=== PATIENT | female | born 1960 | race Hispanic/Latino ===

== ENCOUNTER 2017-01-30 05:44 | Emergency (ER) | payer BC, OTHER ==
[2017-01-30 05:45] VITALS: BMI 27.1
[2017-01-30 06:02] VITALS: RESP 18; TEMP 98.2
--- NOTE | 2017-01-30 06:19 | ED PDOC ---
Arrival/HPI - General Chief Complaint: Rib Injury Time Seen by Provider: 01/30/17 06:14 Historian: Patient - History of Present Illness Narrative History of Present Illness (Text): 01/30/17 06:18 Maritza Arcos is a 56 year old female who presents to the ED complaining of left lower rib/LUQ pain status post 6 days prior. Patient states at work she fell on her left side while walking on pavement. Patient states she has been experiencing anterior left lower rib pain and LUQ pain since then, which is worsened with movement of coughing. Patient denies any shortness of breath, nausea, vomiting, diarrhea, back pain, neck pain, loss of consciousness, head injury, or any other complaints. Time/Duration: < week (6 days) Symptom Onset: Gradual Symptom Course: Unchanged Activities at Onset: Light Context: Walking, Street, Tripped Past Medical History - Provider Review Nursing Documentation Reviewed: Yes - Past Medical History Past Medical History: No Previous - Musculoskeletal/Rheumatological Hx Falls: No - Psychiatric Hx Depression: No Hx Emotional Abuse: No Hx Physical Abuse: No Hx Substance Use: No - Surgical History Hx Appendectomy: Yes - Suicidal Assessment Feels Threatened In Home Enviroment: No Family/Social History - Physician Review Nursing Documentation Reviewed: Yes Family/Social History: Unknown Family HX Smoking Status: Never Smoked Hx Alcohol Use: No Hx Substance Use: No Hx Substance Use Treatment: No Allergies/Home Meds Allergies/Adverse Reactions: Allergies No Known Allergies Allergy (Verified 06/01/13 14:42) Review of Systems - Physician Review All systems were reviewed & negative as marked: Yes - Review of Systems Constitutional: Normal. absent: Fevers Eyes: Normal ENT: Normal Respiratory: Normal. absent: SOB, Cough Cardiovascular: Chest Pain (+left lower rib pain) Gastrointestinal: Abdominal Pain (+LUQ pain). absent: Diarrhea, Nausea, Vomiting Genitourinary Female: Normal. absent: Dysuria, Frequency, Hematuria Musculoskeletal: Normal. absent: Back Pain, Neck Pain Skin: Normal. absent: Rash Neurological: Normal. absent: Headache, Dizziness Endocrine: Normal Hemo/Lymphatic: Normal Psychiatric: Normal Physical Exam Vital Signs Reviewed: Yes Vital Signs Temp Pulse Resp BP Pulse Ox 01/30/17 05:57 98.2 F 64 18 143/78 99 Temperature: Afebrile Blood Pressure: Normal Pulse: Regular Respiratory Rate: Normal Appearance: Positive for: Well-Appearing, Non-Toxic Pain Distress: None Mental Status: Positive for: Alert and Oriented X 3 - Systems Exam Head: Present: Atraumatic, Normocephalic Pupils: Present: PERRL Extroacular Muscles: Present: EOMI Conjunctiva: Present: Normal Mouth: Present: Moist Mucous Membranes Respiratory/Chest: Present: Clear to Auscultation, Good Air Exchange, Tender to Palpation (Tenderness to anterior left lower rib cage). No: Respiratory Distress, Accessory Muscle Use Cardiovascular: Present: Regular Rate and Rhythm, Normal S1, S2. No: Murmurs Abdomen: Present: Tenderness (Tenderness to left upper abdomen), Normal Bowel Sounds. No: Distention, Peritoneal Signs Upper Extremity: Present: Normal Inspection. No: Cyanosis, Edema Lower Extremity: Present: Normal Inspection. No: Edema Neurological: Present: GCS=15, CN II-XII Intact, Speech Normal Skin: Present: Warm, Dry, Normal Color. No: Rashes Psychiatric: Present: Alert, Oriented x 3, Normal Insight, Normal Concentration Medical Decision Making ED Course and Treatment: 01/30/17 06:19 Impression: 56 year old female c/o left lower rib pain/LUQ pain s/p fall 6 days prior. Plan: -- CT Chest, Abdomen, Pelvis with IV contrast -- EKG -- CXR -- Labs, cardiac enzymes, lipase -- Reassess and disposition Progress Notes: - RAD Interpretation Radiology Orders: 01/30/17 06:20 CHEST PORTABLE [RAD] Stat 01/30/17 06:21 CHEST,ABD,PEL W/IV CONT ONLY [CT] Stat - Medication Orders Current Medication Orders: Morphine Sulfate (Morphine) 2 mg IVP STAT STA Stop: 01/30/17 06:32 - Transfer of Care Patient signed out to Dr:: Jennifer Pending Labs:: labs/CT Chest/abd/reassess/final disposition - Scribe Statement The provider has reviewed the documentation as recorded by the Scribe Rox Paredes All medical record entries made by the Scribe were at my direction and personally dictated by me. I have reviewed the chart and agree that the record accurately reflects my personal performance of the history, physical exam, medical decision making, and the department course for this patient. I have also personally directed, reviewed, and agree with the discharge instructions and disposition. Disposition/Present on Arrival - Present on Arrival Any Indicators Present on Arrival: No History of DVT/PE: No History of Uncontrolled Diabetes: No Urinary Catheter: No History of Decub. Ulcer: No History Surgical Site Infection Following: None - Disposition Have Diagnosis and Disposition been Completed?: No Diagnosis: Rib pain, Abdominal pain Disposition Time: 07:00 Condition: STABLE Discharge Instructions (ExitCare): Chest Pain (ED) Forms: [employer] (Tajik)
[2017-01-30] MEDS ORDERED: Morphine 2 mg/ml ISec IVP STA (06:31)
[2017-01-30] MEDS ORDERED: Sodium Chloride 0.9% 1,000 ML IV SCH (06:45)
[2017-01-30 07:06] LABS: HEMATOCRIT 41.6 % (36.0-48.0); INR 0.96 (0.93-1.08); MEAN CELL VOLUME 82.9 fl (80.0-105.0); MEAN CORPUSCULAR HEMOGLOBIN 27.5 pg (25.0-35.0); MEAN CORPUSCULAR HGB CONC 33.2 g/dl (31.0-37.0); MEAN PLATELET VOLUME 10.8 fl (7.0-11.0); PARTIAL THROMBOPLASTIN TIME 26.1 Seconds (23.7-30.8); RED CELL DISTRIBUTION WIDTH 14.1 % (11.5-14.5); WHITE BLOOD COUNT 5.8 10^3/ul (4.5-11.0)
[2017-01-30 07:10] LABS: ALB/GLOB RATIO 1.8 (1.1-1.8); ALKALINE PHOSPHATASE 70 U/L (38-126); ALT/SGPT 31 U/L (7-56); AST/SGOT 28 U/L (14-36); BILIRUBIN,TOTAL 0.3 mg/dL (0.2-1.3); BLOOD UREA NITROGEN 18 mg/dL (7-21); CALCIUM 9.2 mg/dL (8.4-10.5); CARBON DIOXIDE 27 mmol/L (21-33); CHLORIDE 108 mmol/L (98-107); GFR AFRICAN-AMERICAN > 60; GLUCOSE,RANDOM 100 mg/dL (70-110); LIPASE 35 U/L (23-300); POTASSIUM 4.3 mmol/L (3.6-5.0); SODIUM 142 mmol/L (132-148); TOTAL PROTEIN 6.4 g/dL (5.8-8.3)
[2017-01-30 07:22] LABS: TROPONIN I < 0.01 ng/mL
[2017-01-30] MEDS ORDERED: Iohexol 350 MG/100 ML VIAL ONE (07:24)
--- NOTE | 2017-01-30 08:08 | ED PDOC ---
Physical Exam - Physical Exam Narrative Physical Exam (Text): 01/30/17 08:06 Physical exam Patient appears age appropriate in no distress, speaking full sentences without difficulty Head atraumatic. No nasal bone deformity or tenderness, no facial or jaw pain/ swelling. No neck midline tenderness, thoracic and lumbar spine with no midline tenderness. Pt moving b/l upper and lower extremities without difficulty, 5/5 strength, with full active and passive ROM. Distal neurovasc fully intact. Abd soft/nt/ng, no hematomas, no peritoneal signs. Neg. pelvic rock. - Systems Exam Head: Present: Atraumatic, Normocephalic Pupils: Present: PERRL Extroacular Muscles: Present: EOMI Conjunctiva: Present: Normal Mouth: Present: Moist Mucous Membranes Neck: Present: Normal Range of Motion. No: MIDLINE TENDERNESS, Paraspinal Tenderness Respiratory/Chest: Present: Clear to Auscultation, Good Air Exchange. No: Respiratory Distress, Accessory Muscle Use, Tachypneic Cardiovascular: Present: Regular Rate and Rhythm, Normal S1, S2, Peripheal Pulses Present. No: Murmurs Abdomen: Present: Normal Bowel Sounds. No: Tenderness, Distention, Peritoneal Signs, Rebound, Guarding Back: Present: Normal Inspection. No: Midline Tenderness, Paraspinal Tenderness Upper Extremity: Present: Normal Inspection. No: Cyanosis, Edema Lower Extremity: Present: Normal Inspection. No: Edema Neurological: Present: GCS=15, Speech Normal, cranial nerves II through XII fully intact with no cerebellar abnormality, neurosensory fully intact. No focal neurological deficits. Skin: Present: Warm, Dry, Normal Color. No: Rashes Lymphatic: Present: OX3, NI, NC Psychiatric: Present: Alert, Oriented x 3, Normal Insight, Normal Concentration Vital Signs Reviewed: Yes Vital Signs Temp Pulse Resp BP Pulse Ox 01/30/17 09:37 51 L 18 127/67 100 01/30/17 07:45 50 L 18 132/58 L 99 01/30/17 05:57 98.2 F 64 18 143/78 99 Temperature: Afebrile Blood Pressure: Normal Pulse: Regular Respiratory Rate: Normal Appearance: Positive for: Well-Appearing Pain Distress: None Mental Status: Positive for: Alert and Oriented X 3 Medical Decision Making ED Course and Treatment: 01/30/17 08:06 pt in the ER after a mechanical fall sign out to f/u imaging and dispo pt has pain and ttp over her L. chest, where she fell onto. based on hx and pe, does not appear of cardiac origin pt still c/o reproducible pain Report Date : 01/30/2017 09:54:47 PROCEDURE: CT Chest, Abdomen and Pelvis with intravenous contrast Dictator : Guero Mann MD IMPRESSION: 1. No definite posttraumatic sequelae are appreciated throughout the chest abdomen or pelvis. No fracture appreciable. 2. There are several ill defined nodular foci identified at the bilateral lungs which are noncalcified a could reflect potential nodular infiltrates or even developing nodules. Largest measures 9 mm at the right upper lobe inferiorly. There are also a few calcified granulomata at the right lung. Please see discussion above. No significant mediastinal lymphadenopathy. 3. Multiple right renal simple cysts. 4. Prior cholecystectomy. 01/30/17 10:33 pt notes she has been developing cold symptoms read states possible infiltrates will be dc'd on abx informed of CT findings, and pt aware to f/u with her PMD for further w/u Pt states she understands to return to the ER right away for new or worsening symptoms or for inability to f/u with PMD or specialist as instructed. Patient states that she fully agrees with and understands discharge instructions. States that she agrees with the plan and disposition. Verbalized and repeated discharge instructions and plan. I have given the patient opportunity to ask any additional questions. - Lab Interpretations Lab Results: 01/30/17 06:49 01/30/17 06:49 Lab Results 01/30/17 06:49: WBC 5.8, RBC 5.02, Hgb 13.8, Hct 41.6, MCV 82.9, MCH 27.5, MCHC 33.2, RDW 14.1, Plt Count 207, MPV 10.8 01/30/17 06:49: Sodium 142, Potassium 4.3, Chloride 108 H, Carbon Dioxide 27, Anion Gap 11, BUN 18, Creatinine 0.6, Est GFR ( Amer) > 60, Est GFR (Non- Af Amer) > 60, Random Glucose 100, Calcium 9.2, Total Bilirubin 0.3, AST 28, ALT 31, Alkaline Phosphatase 70, Lactate Dehydrogenase 540, Total Creatine Kinase 92, Troponin I < 0.01, Total Protein 6.4, Albumin 4.1, Globulin 2.3, Albumin/Globulin Ratio 1.8, Lipase 35 01/30/17 06:49: PT 10.4, INR 0.96, APTT 26.1 - RAD Interpretation Radiology Orders: 01/30/17 06:20 CHEST PORTABLE [RAD] Stat 01/30/17 06:21 CHEST,ABD,PEL W/IV CONT ONLY [CT] Stat - Medication Orders Current Medication Orders: Sodium Chloride (Sodium Chloride 0.9%) 1,000 mls @ 100 mls/hr IV .Q10H SHANICE Last Admin: 01/30/17 06:52 Dose: 100 mls/hr eMAR Start Stop Document 01/30/17 06:52 EMILY (Rec: 01/30/17 06:52 [facility]ILY [id number]) Intravenous Solution Start Date 01/30/17 Start Time 06:52 Discontinued Medications Iohexol (Omnipaque 350 100 Ml) Confirm Administered Dose 350 mg .ROUTE .STK-MED ONE Stop: 01/30/17 07:25 Ketorolac Tromethamine (Toradol) 15 mg IVP STAT STA Stop: 01/30/17 08:08 Last Admin: 01/30/17 08:37 Dose: 15 mg [facility] Pain Assessment Document 01/30/17 08:37 [facility] (Rec: 01/30/17 08:40 [facility] [id number]) Pain Reassessment Is this a pain reassessment? Yes Presence of Pain Presence of Pain Yes IVP Administration Document 01/30/17 08:37 [employer] [facility] (Rec: 01/30/17 08:40 [facility] [id number]) Charges for Administration # of IVP Administrations 1 Morphine Sulfate (Morphine) 2 mg IVP STAT STA Stop: 01/30/17 06:32 Last Admin: 01/30/17 06:48 Dose: 2 mg [facility] Pain Assessment Document 01/30/17 06:48 EMILY (Rec: 01/30/17 06:51 [facility]ILY [id number]) Pain Reassessment Is this a pain reassessment? No IVP Administration Document 01/30/17 06:48 EMILY (Rec: 01/30/17 06:51 [facility]ILY [id number]) Charges for Administration # of IVP Administrations 1 Re-Assess: MAR Pain Assessment Document 01/30/17 07:48 [employer]STR[employer] [facility] (Rec: 01/30/17 08:40 TECHNICAL ILLUSTRATIONS [facility] [id number]) Pain Reassessment Is this a pain reassessment? Yes Presence of Pain Presence of Pain No Ondansetron HCl (Zofran Inj) 4 mg IVP ONCE ONE Stop: 01/30/17 06:32 Last Admin: 01/30/17 06:52 Dose: 4 mg IVP Administration Document 01/30/17 06:52 [facility] (Rec: 01/30/17 06:52 [facility]ILY [id number]) Charges for Administration # of IVP Administrations 1 Disposition/Present on Arrival - Present on Arrival Any Indicators Present on Arrival: No History of DVT/PE: No History of Uncontrolled Diabetes: No Urinary Catheter: No History of Decub. Ulcer: No History Surgical Site Infection Following: None - Disposition Have Diagnosis and Disposition been Completed?: Yes Diagnosis: Rib pain, Abdominal pain Disposition: HOME/ ROUTINE Disposition Time: 10:39 Patient Plan: Discharge Patient Problems: Current Active Problems Problem Status Onset Abdominal pain Acute Rib pain Acute Condition: GOOD Discharge Instructions (ExitCare): Chest Pain (ED), Fall Prevention (ED) Additional Instructions: PLEASE RETURN TO THE EMERGENCY DEPARTMENT FOR NEW OR WORSENING SYMPTOMS. RETURN RIGHT AWAY IF YOU CANNOT FOLLOW UP WITH YOUR PRIMARY CARE DOCTOR, CLINIC, OR SPECIALIST IN 1-2 DAYS. Prescriptions: Azithromycin [Zithromax] 250 mg PO DAILY #6 tab Ibuprofen [Motrin] 600 mg PO Q8 PRN #12 tab PRN Reason: Pain, Moderate (4-7) Referrals: Mil Clarke, [Primary Care Provider] - Follow up with primary Sg Lion MD [Staff Provider] - Follow up with primary Forms: [employer] (Zambian), WORK NOTE
[2017-01-30 09:38] VITALS: BP 127/67; PULSE 51; O2SAT 100
--- NOTE | 2017-01-30 09:56 | CT ---
PROCEDURE: CT Chest, Abdomen and Pelvis with intravenous contrast HISTORY: left lower rib/upper abd. pain post trauma/fall COMPARISON: None. TECHNIQUE: IV dose administered: Omnipaque 350, 100 cc. Radiation dose: Total exam DLP = 1195.26 mGy-cm. This CT exam was performed using one or more of the following dose reduction techniques: Automated exposure control, adjustment of the mA and/or kV according to patient size, and/or use of iterative reconstruction technique. FINDINGS: CT CHEST WITH CONTRAST: LUNGS: There several nodules are scattered bilaterally which appear faint in the periphery with a few these calcified, reflecting granulomata of. All do not appear calcified. The may even represent limited reticular infiltrates with the largest identified in the right upper lobe inferiorly measuring 9 mm greatest dimension (image 80 series 4). No promise alveolitis or pulmonary contusion evident. Limited bilateral basilar atelectasis identified. No in the central airways appear clear. Limited fibrosis right middle lobe base laterally. MEDIASTINUM: Cardiac size appears upper limits of normal. There is no pulmonary vascular derangement pleural effusion or and pneumothorax appreciated. Thoracic aorta is normal in caliber. No obvious thoracic aortic dissection appreciated. LYMPH NODES: Unremarkable. PLEURA: Unremarkable. No pneumothorax. No pleural fluid. BONES: Multilevel thoracic spondylosis appreciate without definite fracture identified. OTHER FINDINGS: A 2.5 cm nodule is seen at the left breast which is apparently been biopsied in the past. CT ABDOMEN AND PELVIS: LIVER: Unremarkable. No gross lesion or ductal dilatation. GALLBLADDER AND BILE DUCTS: Surgically absent. Clinically correlate. PANCREAS: Unremarkable. No gross lesion or ductal dilatation. SPLEEN: Unremarkable. ADRENALS: Unremarkable. No mass. KIDNEYS AND URETERS: Multiple right renal cyst identified which appears simple with a dominant cyst identified in the lower pole right kidney measuring 4.2 cm greatest dimension. No obstructive uropathy bilaterally. No solid renal mass identified bilaterally. VASCULATURE: Unremarkable. No aortic aneurysm. BOWEL: Unremarkable. No obstruction. No gross mural thickening. APPENDIX: Not identified. PERITONEUM: Unremarkable. No free fluid. No free air. LYMPH NODES: Unremarkable. No enlarged lymph nodes. BLADDER: Unremarkable. REPRODUCTIVE: Unremarkable. BONES: No fracture identified. No suspicious lytic or blastic change. OTHER FINDINGS: None. IMPRESSION: 1. No definite posttraumatic sequelae are appreciated throughout the chest abdomen or pelvis. No fracture appreciable. 2. There are several ill defined nodular foci identified at the bilateral lungs which are noncalcified a could reflect potential nodular infiltrates or even developing nodules. Largest measures 9 mm at the right upper lobe inferiorly. There are also a few calcified granulomata at the right lung. Please see discussion above. No significant mediastinal lymphadenopathy. 3. Multiple right renal simple cysts. 4. Prior cholecystectomy.
--- NOTE | 2017-01-30 12:16 | RAD ---
HISTORY: fever COMPARISON: No prior. FINDINGS: LUNGS: Low lung volumes, crowded bronchovascular markings and mild bibasilar atelectasis right greater than left. There is also slight elevation of the right hemidiaphragm more so along the lateral margin possibly due to eventration. PLEURA: No effusion or evidence of pneumothorax CARDIOVASCULAR: Normal. OSSEOUS STRUCTURES: Re- demonstrated is a speckled appearing sclerotic lesion within the right humeral diametaphysis could represent enchondroma though appears essentially unchanged from prior study right shoulder 06/01/2013. . Minor degenerative changes both acromioclavicular joints with soft tissue calcification adjacent to to the left greater tuberosity consistent with calcific tendinitis VISUALIZED UPPER ABDOMEN: Upper Normal. OTHER FINDINGS: Of the None. IMPRESSION: Low lung volumes, crowded bronchovascular markings and mild bibasilar atelectasis right greater than left. There is also slight elevation of the right hemidiaphragm more so along the lateral margin possibly due to eventration. Re- demonstrated is a speckled appearing sclerotic lesion within the right humeral diametaphysis could represent enchondroma though essentially unchanged in appearance from prior shoulder radiographs dated 06/01/2013 Minor DJD both acromioclavicular joints as detailed above.
--- NOTE | 2017-01-30 13:31 | CARD ---
APPROVED REPORT EKG Measurement Heart [id number] <Conclusion> Marked sinus bradycardia NSSTW changes
== END 2017-01-30 10:48 | disposition home or self-care (01) ==
LOC: ED 05:44
DX: R07.81 Pleurodynia (principal); R10.9 Unspecified abdominal pain
CPT/HCPCS: 71010; 71260; 74177; 80053; 82550; 83615; 83690; 84484; 85027; 85610; 85730; 93005; 96374; 96375; 99284; J1885; J2270; J2405; J7040; Q9967